=== PATIENT | male | born 1955 | race Caucasian/White ===

== ENCOUNTER 2021-05-16 09:05 | Day surgery (SDC) | payer OTHER ==
[2021-05-16 09:22] LABS: Protime INR 1.14
[2021-05-16 09:24] VITALS: BMI 28.7
[2021-05-16 09:48] LABS: MPV 7.5 fL (7.6-11.3)
--- NOTE | 2021-05-16 11:24 | RAD REPORT ---
EXAM DESCRIPTION: SHERLEYSarahi Single View05/16/2021 11:16 am CLINICAL HISTORY: Thoracentesis IMPRESSION: A pneumothorax is not seen status post right thoracentesis
--- NOTE | 2021-05-16 12:05 | RAD REPORT ---
EXAM DESCRIPTION: US - Thoracentesis w/ US Guide - 05/16/2021 11:10 am CLINICAL HISTORY: Right pleural effusion TECHNIQUE: The risks, benefits alternatives to the procedure were explained to the patient and infor med consent obtained. Skiin ,subcutaneous tissues and pleura anesthetized with lidocaine. Under sonographic guidance, an 8 [place] catheter was placed into the posterior mid right pleural spac e. Approximately 200 milliliters reddish-brown fluid removed and sent to the lab. Patient experienced no immediate complication IMPRESSION: Thoracentesis
[2021-05-16 12:49] VITALS: BP 114/61; TEMP 98.1; O2SAT 95
[2021-05-16 12:51] LABS: Appearance VERY TURBID (CLEAR); Body Fluid Source PLEURAL; Body Fluid WBC 138 /mm^3; Color of fluid Red (COLORLESS)
--- NOTE | 2021-05-16 13:02 | RAD REPORT ---
EXAM DESCRIPTION: RAD - Chest Single View - 05/16/2021 12:41 pm CLINICAL HISTORY: POST THORACENTESIS COMPARISON: Chest Single View dated 05/16/2021; Chest Pa And Lat (2 Views) dated 04/30/2021; Chest Pa A nd Lat (2 Views) dated 03/12/2021; Thoracentesis w/ US Guide dated 05/16/2021 FINDINGS: Lines: None. Lungs: Bilateral airspace disease. Pleural: Moderate bilateral effusions. Cardiac: Cardiomegaly. Sternotomy. Bones: No acute fractures. Other: IMPRESSION: No pneumothorax following thoracentesis. Pulmonary edema with bilateral pleural effusion s and likely underlying atelectasis.
== END 2021-05-16 13:00 | disposition home or self-care (01) ==
LOC: DS 09:05
PROVIDERS: ATTEND Internal Medicine Sleep Medicine
DX: R06.02 Shortness of breath (principal); J94.9 Pleural condition, unspecified
CPT/HCPCS: 32554; 32555; 36415; 71045; 82945; 83615; 84157; 85049; 85610; 85730; 87015; 87070; 87102; 87116; 87206; 88108; 88305; 89050